=== PATIENT | male | born 1965 | race Caucasian/White ===

== ENCOUNTER 2025-06-09 14:34 | Emergency (ER) | payer OTHER, SELFPAY ==
--- NOTE | 2025-06-09 14:39 | ED.WOUNDLAC ---
HPI - Wound/Laceration General Chief Complaint: Wound/Laceration Stated Complaint: L MIDDLE FINGER LACERATION Time Seen by Provider: 06/09/25 14:59 Source: patient, RN notes reviewed and old records reviewed Mode of arrival: ambulatory Limitations: no limitations History of Present Illness HPI narrative: 60-year-old male presents to the [facility] with complaints of a laceration to the left middle finger. Patient states that he was trimming trees approximately 2:00 p.m.. Last tetanus was in 2021. Irregular laceration, partial avulsion of skin. Sensation intact. Full range of motion. Bleeding controlled Onset (ago): hour(s) (1) Related Data Allergies Allergy/AdvReac Type Severity Reaction Status Date / Time No Known Allergies Allergy Verified 06/09/25 15:42 Review of Systems Review of Systems: All systems reviewed & are unremarkable except as noted in HPI and below Constitutional: Constitutional: Reports no additional constitutional complaints Musculoskeletal: Musculoskeletal: Reports no additional musculoskeletal complaints Integumentary/Breasts: Skin/Breast: Reports as per HPI PMFSH Comments At the time of my signature, I reviewed and agree with the nursing past medical, surgical, social, and family history. There is no relevant family history pertinent to the patient complaint. Exam Const: General: cooperative, healthy appearing, comfortable, no acute distress, well developed, alert and well nourished Nutritional Appearance: well nourished Orientation/consciousness: patient oriented x3 Limitations: no limitations HENMT: Head: normal to inspection Eyes: General: appearance normal, both eyes and all related structures Alignment and Position: alignment normal Neck: Neck: normal visual inspection, full ROM, no lymphadenopathy and no meningeal signs Chest: Chest palpation & inspection: normal inspection of the chest Resp: Effort & Inspection: normal respiratory effort and able to speak in complete sentences Cardio: Rate: regular rate Skin: General skin exam: normal color and no rashes or lesions noted Other: Irregular laceration, flap, partial avulsion into the center to the left middle finger. Neuro: General: patient oriented x3, gait normal, moves all extremities and no meningeal signs Cognition (Neuro): normal cognition Speech: normal speech Gait exam (Neuro): Normal gait present Extrem: General: normal to inspection, full ROM, capillary refill normal and normal gait Psych: Appearance: grossly normal and well kempt Mental Status: mental status grossly normal Speech and movement: Normal speech and movement present and Clear speech present Affect: normal affect Attitude: cooperative Course Course Level of Care: Express Care Visit Vital Signs Vital signs: Vital Signs Temperature 98.2 F 06/09/25 14:47 Pulse Rate 74 06/09/25 14:47 Respiratory Rate 16 06/09/25 14:47 Blood Pressure 107/74 06/09/25 14:47 Pulse Oximetry 99 06/09/25 14:47 Temperature 98.2 F 06/09/25 14:47 Pulse Rate 74 06/09/25 14:47 Respiratory Rate 16 06/09/25 14:47 Blood Pressure 107/74 06/09/25 14:47 Pulse Oximetry 99 06/09/25 14:47 Reviewed Procedures Laceration Laceration 1: Date: 06/09/25 Time: 15:15 Site: hand (Third finger) Side (If applicable): left Size (cm): 2.5 Description: irregular Depth: simple, single layer Local Anesthetic: lidocaine 1% Amount of anesthesia used (mL): 4 Pre-repair: wound explored and irrigated (250) ====== Skin Level ====== Skin layer closed with: nylon Size (cm): 5-0 Number of sutures: 4 Technique: simple, interrupted ====== Subcutaneous Layer ====== ====== Muscle Layer ====== ====== Tendon Layer ====== Dressing: Procedure explained to patient, verbal consent obtained. Discussed risk of being, area of the wound is not able to fully approximate due to avulsion of skin. Patient verbalized understanding. Area at the base of finger cleaned with Betadine, digital block performed, anesthesia achieved. 250 mL of saline used to flush wound. Four sutures placed. Center of wound to small areas, open, unable to fully approximate due to irregularity of wound, avulsion of skin. MDM - Wound/Laceration MDM Narrative Medical decision making narrative: Patient sitting in exam room. Patient is nontoxic, vitals stable. Patient presents with irregular laceration from a saw. Area repaired with some open areas, covering with an antibiotic Patient is appropriate for outpatient treatment with close follow-up Discharge instructions reviewed with patient, as well as provided in writing per nursing staff. The instructions also include specific and strict return/GO TO THE ER as well as f/u information. All questions have been answered, and the patient deny any further questions with discharge and discharge plan. Some parts of this dictation were generated by voice recognition software and may contain typographical and/or grammatical inaccuracies. Differential Diagnosis Differential diagnosis: Likely laceration, abrasion and avulsion of skin Critical Care Time Critical Care Time Critical Care Time: No Discharge Plan Discharge Clinical Impression: Laceration, Avulsion of skin Patient Disposition: Home Condition: Stable Instructions: Antibiotic Form, Care For Your Stitches (DC), Finger Laceration (ED), Skin Avulsion (ED) Additional Instructions: Keep area clean and dry. Wash with warm soapy water, pat dry. Keep covered when not at home. Try leaving open to air for 4 to 5 hours every day. Follow-up with your primary care provider in sits 10-14 days for suture removal Rest, ice and elevate every 2-3 hours for 15-20 minutes while awake Take Tylenol as needed for pain Patient Language: B[place] Prescriptions: New cephalexin 500 mg capsule 500 mg PO Q12H Qty: 14 0RF Follow-up/Referrals: Krissy,Kurt Briones MD [Primary Care Provider] Time of Disposition: 15:43
[2025-06-09 14:47] VITALS: BP 107/74; PULSE 74; RESP 16; TEMP 36.8; O2SAT 99
[2025-06-09] MEDS: LIDOCAINE 1% LOCAL INJ 2 ML AMPUL 6 ML INFILTRATE (15:09)
== END 2025-06-09 15:50 | disposition home or self-care (01) ==
PROVIDERS: Emergency Provider Nurse Practitioner; PCP Family Medicine
DX: S61.213A Laceration without foreign body of left middle finger without damage to nail, initial encounter (principal); W45.8XXA Other foreign body or object entering through skin, initial encounter
CPT/HCPCS: 12001; 99203; G0463; J2003

== ENCOUNTER 2025-06-18 11:50 | Emergency (ER) | payer OTHER, SELFPAY ==
--- NOTE | 2025-06-18 12:05 | ED.GENADULT ---
HPI - General Adult General Chief complaint: Skin/Abscess/Foreign Body Stated complaint: SUTURE REMOVAL Time Seen by Provider: 06/18/25 12:05 Source: patient Mode of arrival: ambulatory Limitations: no limitations History of Present Illness HPI narrative: 60-year-old male presented for suture removal. Patient reports sutures placed 06/09/2025 to the left middle finger. He took his antibiotic as directed. Denies any redness, swelling or purulent drainage. Denies complications. Related Data Allergies Allergy/AdvReac Type Severity Reaction Status Date / Time No Known Allergies Allergy Verified 06/18/25 12:05 Review of Systems Review of Systems: CONSTITUTIONAL: Denies body aches, fever, chills, or sweats. EYES: Denies visual changes, redness, or discharge. ENT: Denies rhinorrhea, congestion CARDIOVASCULAR: Denies chest pain, palpitations, or edema. RESPIRATORY: Denies cough or dyspnea. GASTROINTESTINAL: Denies abdominal pain, nausea, vomiting, or diarrhea. SKIN: Reports sutures in the left middle finger MUSCULOSKELETAL: Denies back pain, joint pain, or myalgia. NEUROLOGIC: Denies headache, numbness, tingling, or weakness. PMFSH Comments At time of signature, I have reviewed and agree with nursing past medical, surgical, social and family history unless otherwise noted. Please see nursing chart for further information. There is no relevant family history pertinent to the presenting complaint Exam Narrative: GENERAL: Well-appearing HEAD: Normocephalic, atraumatic. EYES: conjunctivae clear, and EOMI. ENT: Mucous membranes moist. Oropharynx without edema, erythema or lesions. NECK: Supple. No lymphadenopathy CHEST: Clear to auscultation. HEART: Regular rate and rhythm. SKIN: Warm, dry. Left 3rd digit with 4 sutures intact, no surrounding erythema, swelling or purulent drainage noted. CMS intact. NEURO: Alert and oriented x3. Course Course Emergency Course: Patient is aware of diagnosis, understands and agrees to treatment plan. Anticipatory guidance given. Patient agrees to follow-up as directed and is aware of reasons to seek care at the emergency department. Portions of this record may have been created with voice recognition software Level of Care: Express Care Visit Vital Signs Vital signs: Reviewed Procedures Other Procedure Procedure 1: Other Procedure: 4 sutures removed from the left middle finger without difficulty. Patient tolerated well. Open to air. Medical Decision Making MDM Narrative Medical decision making narrative: Discussed physical exam findings; sutures removed without difficulty, no signs of infection. Advised supportive measures and signs/symptoms to go to the ER. Pt is appropriate for outpt treatment and f/u. Differential Diagnosis Differential Diagnosis: Encounter for suture removal Discharge Plan Discharge Clinical Impression: Encounter for removal of sutures Patient Disposition: Home Condition: Stable Instructions: Acute Wounds (ED) Additional Instructions: Keep the area clean and dry - cleanse with warm water and mild soap and allow to fully dry. Ok to apply neosporin to the site Keep it open to air (no bandages) Watch for worsening symptoms including pain, redness, swelling, streaking, pus/drainage, fever. Go to the ER with any of these symptoms or concerns. Follow up with primary care provider as needed. Patient Language: Estonian Prescriptions: No Action cephalexin 500 mg capsule 500 mg PO Q12H Qty: 14 0RF Follow-up/Referrals: Krissy,Kurt Briones MD [Primary Care Provider] Time of Disposition: 12:11
[2025-06-18 12:08] VITALS: BP 112/76; PULSE 66; RESP 18; TEMP 36.5; O2SAT 100
== END 2025-06-18 12:14 | disposition home or self-care (01) ==
PROVIDERS: Emergency Provider Nurse Practitioner Family; PCP Family Medicine
DX: S61.213D Laceration without foreign body of left middle finger without damage to nail, subsequent encounter (principal); X58.XXXD Exposure to other specified factors, subsequent encounter; I10 Essential (primary) hypertension; E78.00 Pure hypercholesterolemia, unspecified; E03.9 Hypothyroidism, unspecified; K21.9 Gastro-esophageal reflux disease without esophagitis
CPT/HCPCS: 99211; G0463